=== PATIENT | male | born 1995 | race Caucasian/White ===

== ENCOUNTER 2018-10-09 03:15 | Emergency (ER) | payer OTHER ==
[~2018-10-09] VITALS: Ht 182.9 cm; Wt 83.9 kg
[2018-10-10 10:09] LABS: HCV ANTIBODY <0.1 (0.0-0.9); HIV SCREEN 4TH GENERATION WRFX Non Reactive (Non Reactive)
== END 2018-10-09 04:52 | disposition home or self-care (01) ==
LOC: ER 03:15
PROVIDERS: Emergency Medicine
DX: Z77.21 Contact with and (suspected) exposure to potentially hazardous body fluids (principal)
CPT/HCPCS: 84460; 86317; 86803; 87389; 99283

== ENCOUNTER 2019-01-05 19:55 | Emergency (ER) | payer OTHER ==
[~2019-01-05] VITALS: Ht 182.9 cm; Wt 81.7 kg
[2019-01-05] MEDS ORDERED: Augmentin 875-1 EACH PO (20:20)
== END 2019-01-05 20:32 | disposition home or self-care (01) ==
LOC: ER 19:55
DX: S70.372A Other superficial bite of left thigh, initial encounter (principal); W54.0XXA Bitten by dog, initial encounter
CPT/HCPCS: 99283